=== PATIENT | male | born 1975 | race Caucasian/White ===

== ENCOUNTER → 2019-03-22 | Outpatient (CLI) | payer MEDICAID | LOC: FIMAGING 06:08 | PROVIDERS: ATTEND Internal Medicine | DX: S46.811A Strain of other muscles, fascia and tendons at shoulder and upper arm level, right arm, initial encounter (principal); M75.31 Calcific tendinitis of right shoulder; M75.51 Bursitis of right shoulder; M24.811 Other specific joint derangements of right shoulder, not elsewhere classified ==